=== PATIENT | female | born 1970 | race Caucasian/White ===

== ENCOUNTER 2020-04-11 09:27 | Outpatient (REF) | payer BC, SELFPAY ==
[2020-04-11 11:29] LABS: MANUAL DIFF FLAG NO
[2020-04-11 11:37] LABS: Basophils Absolute Auto 0.1 X10*3/uL (0.0-0.2); Basophils Percent Auto 0.5 % (0-2); Eosinophils Absolute Auto 0.3 X10*3/uL (0.0-0.4); Eosinophils Percent Auto 2.9 % (0-4); Hematocrit 45.8 % (37-47); Hemoglobin 15.6 g/dl (12.0-16.0); Imm Gran Abs Auto 0.03 X10*3/uL (0.00-0.03); Imm Gran Pct Auto 0.3 % (0.0-0.4); Lymphocytes Absolute Auto 2.9 X10*3/uL (1.2-4.9); Lymphocytes Percent Auto 29.4 % (20-40); Mean Corpuscular HGB Conc 34.1 g/dl (31.0-35.0); Mean Corpuscular Hemoglobin 30.9 pg (27.0-33.0); Mean Corpuscular Volume 90.7 fL (80-98); Mean Platelet Volume 11.4 fL (9.4-12.3); Monocytes Absolute Auto 0.5 X10*3/uL (0.1-1.2); Monocytes Percent Auto 4.5 % (2-11); Neutrophils Absolute Auto 6.2 X10*3/uL (2.0-8.3); Neutrophils Percent Auto 62.4 % (45-73); Platelet Count 304 X10*3/uL (160-400); Red Blood Count 5.05 X10*6/uL (4.20-5.50); Red Cell Distribution Width 13.4 % (11.0-16.0)
[2020-04-11 11:55] LABS: Anion Gap 16 (12-20); Blood Urea Nitrogen 10 mg/dL (9-16); Calcium 9.4 mg/dL (8.4-10.2); Carbon Dioxide 24 mmol/L (22-29); Chloride 105 mmol/L (96-108); Estimated Glomerular Filt Rate > 60; Glucose Random 89 mg/dL (60-115); Potassium 4.4 mmol/l (3.3-5.1); Sodium 141 mmol/L (135-145)
[2020-04-11 12:55] LABS: Erythrocyte Sedimentation Rate 14 MM/HR (0-20)
[2020-04-12 18:17] LABS: Immunoglobulin E 3 kU/L (<OR=114)
[2020-04-14 11:56] LABS: Angiotensin Converting Enzyme 45 U/L (9-67)
[2020-04-14 16:32] LABS: IgA 127 mg/dL (47-310); IgG 645 mg/dL (600-1640); IgM 46 mg/dL (50-300)
== END 2020-04-11 09:28 | disposition home or self-care (01) ==
LOC: HO.LAB 09:27
PROVIDERS: PCP Family Medicine; Visit Provider Hospitalist
DX: J32.9 Chronic sinusitis, unspecified (principal); J45.909 Unspecified asthma, uncomplicated; D80.1 Nonfamilial hypogammaglobulinemia; J98.11 Atelectasis; F17.200 Nicotine dependence, unspecified, uncomplicated
CPT/HCPCS: 36415; 80048; 82164; 82784; 82785; 85025; 85652

== ENCOUNTER → 2020-06-07 10:02 | Outpatient (BNVA) | payer BC, SELFPAY | PROVIDERS: PCP Family Medicine; Visit Provider Hospitalist | DX: Z13.89 Encounter for screening for other disorder (principal) ==

== ENCOUNTER → 2020-07-28 10:34 | Outpatient (BNVA) | payer BC, SELFPAY | PROVIDERS: PCP Family Medicine; Visit Provider Hospitalist ==

== ENCOUNTER 2020-09-27 07:03 | Outpatient (REF) | payer BC, SELFPAY ==
--- NOTE | ~2020-09-27 | CT_ITS ---
EXAMINATION: CT CHEST, ABDOMEN AND PELVIS WITH IV CONTRAST CLINICAL INFORMATION: Atelectasis. Colitis and abdominal pain. COMPARISON: None. TECHNIQUE: Axial images through the chest, abdomen and pelvis following oral and 85 mL of Omnipaque 350 intravenous contrast. Sagittal and coronal reconstructions on the technologist workstation were performed. Patient dose: 215+634 mGy-cm. FINDINGS: CHEST: There is a 3 mm left upper lobe nodule axial image 26 series 13. There is a 2 mm calcified left upper lobe nodule, axial image 26 series 13. There is a 6 x 8 mm right lower lobe nodule, axial image 141 series 13. This is heterogeneous in attenuation with low-attenuation areas questionable for fat. This raises the question of a nodule representing a benign pulmonary hamartoma. There is an area of cystic change seen in the right lower lobe measuring 1 cm axial image 116 series 3. There is minimal subsegmental atelectasis seen at both lung bases. No endobronchial or endotracheal lesion is seen. Visualized thyroid gland is normal. There are small mediastinal lymph nodes. No enlarged lymph nodes are seen. There is mild coronary artery calcification. The mediastinum is otherwise normal. There is no pleural effusion or pleural thickening or pneumothorax. No chest wall mass or enlarged axillary lymph nodes are seen. Review of bone windows demonstrates mild degenerative changes of the spine. ABDOMINAL AND PELVIC: The liver is normal in size, shape and attenuation. There is a 5 mm low-attenuation lesion seen in the medial segment of the left lobe of the liver, axial image 18 series 3, probably representing a cyst. No other focal liver lesion is seen. The gallbladder is normal. There is no biliary duct dilatation. The spleen is normal. Pancreas is normal. The adrenal glands are normal. There is a tiny 3 mm low-attenuation lesion in the upper pole the left kidney probably representing a cyst. Kidneys are otherwise unremarkable. The bladder is unremarkable. The uterus appears to have been removed. No pelvic mass is seen. The small and large bowel is unremarkable. The stomach is unremarkable. The appendix is unremarkable. There is a small umbilical hernia containing fat. No ascites or adenopathy is seen. Vascular structures are unremarkable. There are several nonspecific sclerotic lesions seen in the pelvis and spine. The largest measures 1 x 2 cm in the left iliac bone. CT/CT abdomen pelvis w con IMPRESSION: CHEST: Subsegmental atelectasis at the lung bases. Small pulmonary nodules, largest a 6 x 8 mm right lower lobe nodule. This is heterogeneous in attenuation with low-attenuation areas questionable for fat. This raises possible diagnosis of benign hamartoma. Comparison with old outside exams if available is recommended. Otherwise chest CT follow-up in 6-12 months or PET/CT scan should be considered. ABDOMEN AND PELVIS: Probable small liver and left renal cysts. No follow-up indicated. No evidence of colitis. Small umbilical hernia containing fat.
[2020-09-27] MEDS: iohexoL 350 MG/ML 100 ML INFUS..BTL IV (09:30)
== END 2020-09-27 07:04 | disposition home or self-care (01) ==
LOC: HO.CT 07:03
PROVIDERS: Visit Provider Hospitalist
DX: R10.84 Generalized abdominal pain (principal); K52.9 Noninfective gastroenteritis and colitis, unspecified; J98.11 Atelectasis; J91.8 Pleural effusion in other conditions classified elsewhere
CPT/HCPCS: 71250; 74177; Q9967

== ENCOUNTER → 2020-10-27 10:24 | Outpatient (BNVA) | payer BC, SELFPAY | PROVIDERS: PCP Family Medicine; Visit Provider Hospitalist ==

== ENCOUNTER → 2021-03-26 10:21 | Outpatient (BNVA) | payer BC, SELFPAY | PROVIDERS: PCP Family Medicine; Visit Provider Hospitalist ==

== ENCOUNTER 2021-07-06 09:49 | Outpatient (REF) | payer BC, SELFPAY ==
--- NOTE | ~2021-07-06 | XR_ITS ---
EXAMINATION: XR CHEST CLINICAL INFORMATION: Post COVID COMPARISON: CT chest dated 09/27/2020 TECHNIQUE: 2 views of the chest were obtained. FINDINGS: Normal symmetric lung volumes. No parenchymal consolidation. No pleural effusion. No pneumothorax. Cardiomediastinal silhouette and pulmonary vascularity are within normal limits. No acute osseous abnormalities. XR/XR chest 2V IMPRESSION: No acute findings
--- NOTE | 2021-07-06 10:31 | ECG_ITS ---
Test Reason : COPD Blood Pressure : / mmHG Vent. Rate : 071 BPM Atrial Rate : 071 BPM P-R Int : 182 ms QRS Dur : 070 ms QT Int : 418 ms P-R-T Axes : 051 072 055 degrees QTc Int : 454 ms Normal sinus rhythm Normal ECG No previous ECGs available Referred By: Sumeet Clements Electronically Signed By:Keith Elizondo
== END 2021-07-06 09:50 | disposition home or self-care (01) ==
LOC: HO.XRAY 09:49
PROVIDERS: PCP Family Medicine; Visit Provider Hospitalist
DX: R07.9 Chest pain, unspecified (principal); D80.1 Nonfamilial hypogammaglobulinemia; R91.8 Other nonspecific abnormal finding of lung field; J45.40 Moderate persistent asthma, uncomplicated; J98.11 Atelectasis; U09.9 Post COVID-19 condition, unspecified; F17.200 Nicotine dependence, unspecified, uncomplicated
CPT/HCPCS: 71046; 93005

== ENCOUNTER 2021-10-12 15:49 | Outpatient (REF) | payer BC, SELFPAY ==
--- NOTE | ~2021-10-12 | CT_ITS ---
EXAMINATION: CT CHEST LOW-DOSE SCREENING WITHOUT CONTRAST HISTORY: Asymptomatic patient meeting criteria for lung screening. PATIENT PACK-YEAR HISTORY: 1 pack per day x 35 years. Current Smoker: Yes. If former smoker, years since quitting: Not applicable. COMPARISON: CT chest dated from 09/27/2020. TECHNIQUE: Multidetector volumetric non-contrast CT imaging of the chest was obtained using low dose screening CT technique. Axial thin section reformations in soft tissue and lung windows were obtained. Sagittal and coronal reformations were obtained. Axial MIP images were also created and reviewed. DLP: 44.9 mGy-cm FINDINGS: LUNGS: A 0.8 x 0.8 cm pulmonary nodule in the medial right lung base (5:351) is unchanged. As stated before, this nodule possible demonstrates tiny fat lobules. A 0.4 cm pulmonary nodule in the lateral right lung base (5:351) is unchanged. A 0.3 cm left apical pulmonary nodule (5:61) is unchanged. A tiny calcified granuloma medially in the left apex (5:67) is again noted. No new or enlarging pulmonary nodules. No focal airspace opacities or ground-glass disease. The central airways are patent. There are mild plate-like opacities in the lung bases favored to represent subsegmental atelectasis or scarring. A few small focal parenchymal lucencies, for example right upper lobe image 158, and right lower lobe images 286 and 291 of series 5 are unchanged. MEDIASTINUM: Normal heart size. No pericardial effusion. No lymphadenopathy by size criteria. The thyroid gland is within normal limits to the extent seen. PLEURA: No pleural effusion or pneumothorax. AXILLA: No chest wall mass or axillary lymphadenopathy. UPPER ABDOMEN: A too small to characterize hypodensity in the medial left lobe (3:51) is unchanged. SPINAL COMPRESSION: Absent. CT/CT lung screening IMPRESSION: Stable pulmonary nodules. The largest pulmonary nodule measures 0.8 cm in the medial right lung base possibly demonstrating tiny fat lobules, which favors to represent a benign etiology such as hamartoma. Other pulmonary nodules measure less than 4 mm in size. LUNG-RADS CATEGORY ASSESSMENT: Probably benign. INCIDENTAL FINDINGS (S CATEGORY): Finding: Coronary artery calcifications. Significance category: Variable clinical significance. RECOMMENDATION: Low dose lung CT. overall in 1 year. Visual estimate of coronary calcified plaque burden: Mild. However, this exam cannot replace a dedicated cardiac CT calcium score for accurate assessment.
== END 2021-10-12 15:50 | disposition home or self-care (01) ==
LOC: HO.CT 15:49
PROVIDERS: PCP Family Medicine; Visit Provider Physician Assistant Medical
DX: Z12.2 Encounter for screening for malignant neoplasm of respiratory organs (principal); F17.210 Nicotine dependence, cigarettes, uncomplicated
CPT/HCPCS: 71271; G0296

== ENCOUNTER → 2021-10-15 09:37 | Outpatient (BNVA) | payer BC, SELFPAY | PROVIDERS: PCP Family Medicine; Visit Provider Hospitalist | DX: R07.9 Chest pain, unspecified (principal); D80.1 Nonfamilial hypogammaglobulinemia; R91.8 Other nonspecific abnormal finding of lung field; U09.9 Post COVID-19 condition, unspecified; C43.9 Malignant melanoma of skin, unspecified ==

== ENCOUNTER 2023-04-25 16:27 | Outpatient (REF) | payer BC, SELFPAY ==
--- NOTE | ~2023-04-25 | CT_ITS ---
EXAMINATION: CT CHEST SCREENING CLINICAL INFORMATION: Nicotine dependence. One pack per day x 35 years. COMPARISON: CT lung screening October 12, 2021. TECHNIQUE: Multidetector volumetric CT imaging of the chest is performed without contrast using low dose technique. Additional 2-D coronal and sagittal reformatted images and axial 3-D maximum intensity projection (MIP) images are generated on the CT workstation. This CT examination was performed using dose optimization techniques as appropriate, variously including the following: *Automated exposure control. *Adjustment of mA and/or kV according to patient size (this includes techniques or standardized protocols for targeted exams where dose is matched to indication/reason for exam; i.e. extremities or head). *Use of iterative reconstruction technique. DLP: 44 mGy-cm FINDINGS: LUNGS: A 9 x 9 mm pulmonary nodule in the medial right lung base (5:424 compare prior 5:351) is unchanged by my measurements on both the new and old study. A 4 mm pulmonary nodule in the lateral right lung base (5:443 compare prior 5:351) is unchanged. A 4 mm left apical pulmonary nodule previously measured 3 mm (5:99 compare prior 5:61). A tiny calcified granuloma medially in the left apex (5:93 compare prior 5:67) is again noted. There is a new 6 x 4 x 5 mm right middle lobe nodule which abuts the minor fissure and tents slightly. No other new or enlarging pulmonary nodules. No focal consolidation or ground-glass disease. The central airways are patent. Basilar scarring is again seen. MEDIASTINUM: The mediastinum is normal. CORONARY ARTERY CALCIFICATION: Mild. PLEURA: There is no pleural effusion. No pleural mass or thickening. AXILLA: No lymphadenopathy. UPPER ABDOMEN: Small water density cyst noted in the right lobe of the liver near the falciform ligament, unchanged. OSSEOUS STRUCTURES: Unremarkable. CT/CT lung screening IMPRESSION: 1. A new 6 x 4 x 5 mm right middle lobe nodule which abuts the minor fissure and tents slightly. 2. Other pulmonary nodules are stable. 3. Other incidental findings as described above. ASSESSMENT: Lung-RADS category 4A: Suspicious. RECOMMENDATION: Short interval 3 month follow up low dose CT chest.
== END 2023-04-25 16:28 | disposition home or self-care (01) ==
LOC: HO.CT 16:27
PROVIDERS: Visit Provider Physician Assistant Medical
DX: Z12.2 Encounter for screening for malignant neoplasm of respiratory organs (principal); F17.210 Nicotine dependence, cigarettes, uncomplicated
CPT/HCPCS: 71271

== ENCOUNTER 2023-07-18 10:07 | Outpatient (AMB) | payer BC, SELFPAY ==
--- NOTE | 2023-07-18 10:09 | A.OFFVIS_ITS ---
Intake Vital Signs 07/18/23 10:12 Height 5 ft 7.5 in Weight 142 lb BMI 21.9 BP 128/70 Blood Pressure Location Rt brachial Position Sitting Pulse 63 Pulse Source Pulse Oximeter Pulse Oximetry (%) 99 Oxygen Delivery Method Room Air Intake Visit Reasons: asthma Store Coordinator Required: No Allergies amoxicillin Allergy (Severe, Verified 07/18/23 10:15) Rash and Hives Latex Allergy (Severe, Uncoded 07/18/23 10:15) Rash and Hives HPI HPI Comments History of Present Illness Details The patient is a 53-year-old woman active smoker, history of asthma who has a history of pulmonary nodules. Apparently back in for where she started developing worsening respiratory symptoms and cough. She was seen by urgent care and was provided with antibiotic. Subsequent after that her symptoms worsen with increasing wheezing and she return to be evaluated. She was given prednisone and 2nd course of antibiotics. Her symptoms were partially improved but she was still coughing and short of breath. She was tested for COVID-19 which was negative. 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 She also had a CT scan of the chest demonstrating stable pulmonary nodules although she has increased haziness at the bases suggesting the possibility of atelectasis versus early interstitial lung disease. Patient also has some evidence of emphysema the appears to be progressive in nature. Evidence of bronchitis also noted. Due to the persistent symptoms she did go back to her primary care doctor who ordered another Z-Jin. We did talk about her immunodeficiency issues. We talked about the options of prophylactic antibiotics versus IgG infusions. At this point patient opted to tried prophylactic antibiotics and see if there is any improvement in her immune system the coming months. She is going to try to quit smoking in order to improve her immune system and also will avoid steroids smart as possible. At this point because they are lower and she still having symptoms I will refer her to immunology so she can go a more in-depth evaluation of why she is immuno deficient. In the meantime she is to continue the azithromycin Friday and Friday. In regards of her interstitial changes in her bases and atelectasis along with pulmonary nodules will request a repeat CT scan with supine and prone cuts in order to try to address the question of interstitial lung disease. We did follow-up with her off phenotype which is normal, MM. 02/04/2020 the patient is here for pulmonary follow-up visit. She still has multiple complaints. She did have the sleep study which demonstrated an AHI of 0.6 I reassured that she does not have sleep apnea. She states that it was a very limited studies and she was unable to sleep that night. Explained to her that is still a very good result in for now we can this regard. She is feeling better and she is sleeping better from the standpoint. Her breathing is also better using the Symbicort. However, she does complaint of significant coughing productive sputum moderate severity. We were able to give her hypertonic saline neb in the office and send a sputum culture. We did discuss the possibility of bronchoscopy if is still not improved. In the meantime her IgG levels are still low and actually lower than before. She will follow-up with immunology regards of the results and also considering therapy with IVIG. Is not on reasonable for her to try at least for 6 months to see if he sees any improvement. 04/11/2020 the patient is here for pulmonary follow-up visit. Again she has multiple complaints. She still having significant sinus discomfort and sinus congestion along with cough. She had been seen by immunology. She was placed back on azithromycin 3 times a week, but, the patient stopped it because her colitis got worse. In the meantime she is continue with her current symptoms. She also complains of body aches and headaches. She also complains of difficulty sleeping and daytime drowsiness. We did talk about sleep aid but the patient is not interested at this time. She has been taking benzodiazepines. Again we spoke about the minute deficiency. She did have a pneumococcal vaccine and she recently had a titers. Based on those results the patient will be evaluated for potential IVIG therapy. Will be reasonable to try for 6 months and see if the patient has any significant benefit. 10/27/2020 the patient is here for pulmonary follow-up visit. Overall the patient still recovering after receiving the COVID-19 vaccination. She started developing significant sinus discomfort. Significant congestion. Moderate severity. She did take azithromycin that she had leftover but did not really help much. At this point the patient is immunocompromised, therefore, will start a course of Augmentin to see if we can improve her symptoms. 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 I do think that she should based on her recurrent infections. The other issue is the fact that she is still smoking. We did talk about the risks of continued to get worsening respiratory symptoms and also the risk of lowering her immunity of the airways and resulting increasing infections. The patient will hopefully start cutting down. We did review her CT scan of the chest that she had recently in September 2020 demonstrating stable intermediate size right lower lobe nodular density measuring to 8 mm in size. 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 Has not changed when compared to previous CT scans. At this point this appears to be a benign finding. Patient now at the she 50 would be a good candidate for the lung cancer screening program to continue monitoring her findings and also with her increase of lung cancer. 03/26/2021 the patient is here for a pulmonary follow-up visit. Overall the patient has been complaining of increasing constitutional symptoms. She was recently vaccinated with the flu shot about a week ago and then a few days ago she did get both vaccines for hepatitis-B and also repeat mmr. Ever since then she has been developing significant symptoms. She started developing chest discomfort I also noticed a bruise on her chest. She also started complaining left upper quadrant discomfort. She has been taking extra-strength Tylenol. I did recommend that she rest and hopefully her symptoms do improve if they are just due to vaccine reaction. However her symptoms do not improve or she gets worse then I did provide her with a chest x-ray and blood work to have done. She is also concerned about having booster since she has had a bad reaction to the 2nd maternal shot. In view of her we can immune system she should. However due to her reaction would be reasonable to check her COVID-19 spike protein titers to see if she would need a booster. Unfortunately, she continues smoking. She does have the nicotine patch and also has the Nicotrol inhaler. She needs to come up with a quit date and start her tobacco cessation. 07/06/2021 the patient is here for pulmonary follow-up visit. 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 the symptoms are affecting her quality of life. We did talk about different options including stimulant therapy that we can consider using such as Nuvigil or Provigil for persistent daytime drowsiness. Meantime the patient needs to make sure that she is sleeping adequately with good sleep hygiene. in the meantime she continues use her respiratory therapy with partial resolution of her symptoms. Unfortunately she is still smoking. She is trying to cut down. In addition to that the patient does complaint of this new onset left- sided chest discomfort. She has had therefore about a day or so. Seems to wax and wane. At this point the symptoms are not present. Will have her get an x- ray and an EKG just to make sure. If the symptoms worsen of the recur she will needs further evaluation management. 10/15/2021 the patient is here for a pulmonary follow-up visit. she continues to have dyspnea on exertion. Unfortunate she continues to smoke cigarettes. She is very stressed lately so is not a good time to quit. She did have a reasonable response to Wellbutrin in the past and also using the nicotine gum. However, she cannot chew gum anymore. She had a partial response to the Nicotrol inhaler. I will send her the Wellbutrin again to the pharmacy in order for her to start. We did review her pulmonary function studies. She does have a significant obstructive condition. In addition to that she did undergo a CT scan as part of the lung cancer screening program. She does have an 8 mm pulmonary nodule that is not changing. She will continue to follow the lung cancer screening guidelines. The patient was concerned because she also had calcifications of the coronary arteries. Explained to her that the smoking is also affecting her heart in her vasculature. She is going to try more than ever to quit. We did talk about potential considering hypnosis other right now on initially she cannot afford to do anything outside of her means. 07/18/2023 the patient is here for pulmonary follow-up visit. Patient overall has been much better. She is exercising regularly. She is also working on weight loss. Her appetite however has been decreased. She continues use the Nicotrol inhaler with good effect. She did undergo CT scan of the chest to the lung cancer screening program. It demonstrated that she has 2 new nodules on the right hemithorax. We personally reviewed the CT scans together. She is scheduled to have another scan in the coming weeks. We did talk that if the scan demonstrates any worsening of the nodules then will have to be more invasive figure out what the nodules are potentially considering resection. 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 Pulmonary nodules Tobacco dependence Sinusitis Atelectasis Asthma Hypogammaglobulinemia Surgical History (Updated 10/12/21 @ 11:35 by Christelle Tovar PA-C) History of total hysterectomy History of Social History (Updated 10/12/21 @ 15:43 by Christelle Tovar PA-C) Patient Tobacco Use Status: Current everyday Tobacco user Tobacco use type: Cigarette Cigarette Packs Per Day: 1 Years Smoked: onset 14, 1ppd x 37yrs, 37pyh Review of Systems Const Denies body aches, Denies daytime sleepiness, Reports difficulty sleeping, Denies fatigue, Denies fever(s), Denies night sweats, Reports poor appetite and Reports weight loss ENT Denies change in voice, Denies lip swelling, Denies mouth pain, Reports nasal congestion, Reports nasal discharge, Denies sinus pain and Denies tongue swelling Card Denies chest pain Resp Reports cough GI Reports no additional complaints Musc Denies no additional complaints Neuro Denies Neuro-related abnormal movements Psych Reports as per HPI Endo Denies fatigue Gerald/Lymph Denies easy bleeding, Reports easy bruising and Denies lymphadenopathy Aller/Immun Denies lip swelling and Denies tongue swelling Physical Exam Vital Signs: Last Vital Signs Pulse 63 07/18/23 10:12 BP 128/70 07/18/23 10:12 Pulse Ox 99 07/18/23 10:12 Oxygen Delivery Method Room Air 07/18/23 10:12 BMI result Body Mass Index 21.9 Const General: alert Neck Neck: Yes normal visual inspection, Yes full ROM and Yes no lymphadenopathy Chest Chest palpation & inspection: normal inspection of the chest Resp Effort & Inspection: normal respiratory effort Auscultation: diminished lung sounds Cardio Rate: regular rate Rhythm: regular rhythm Heart sounds: S1 normal heart sound present and S2 normal heart sound present GI Palpation (GI): Soft to palpation, Tenderness to palpation present (GI) in the LUQ, no guarding, not rigid and hepatosplenomegaly present Auscultation: normal bowel sounds Skin General skin exam: no rashes or lesions noted Extrem General: Yes no clubbing, cyanosis or edema Results Reviewed Results Reviewed: [address] [address] [address] Scan Report Signed Patient: Moira Rosen MR#: [id number] : 1970 Acct:[id number] Age/Sex: 53 / F ADM Date: 04/25/23 Loc: HO.CT Attending Dr: Christelle Tovar PA-C Ordering Physician: Christelle Tovar PA-C Date of Service: 04/25/23 Procedure(s): CT lung screening Accession Number(s): [id number] cc: Christelle Tovar PA-C~ EXAMINATION: CT CHEST SCREENING CLINICAL INFORMATION: Nicotine dependence. One pack per day x 35 years. COMPARISON: CT lung screening October 12, 2021. TECHNIQUE: Multidetector volumetric CT imaging of the chest is performed without contrast using low dose technique. Additional 2-D coronal and sagittal reformatted images and axial 3-D maximum intensity projection (MIP) images are generated on the CT workstation. This CT examination was performed using dose optimization techniques as appropriate, variously including the following: *Automated exposure control. *Adjustment of mA and/or kV according to patient size (this includes techniques or standardized protocols for targeted exams where dose is matched to indication/reason for exam; i.e. extremities or head). *Use of iterative reconstruction technique. DLP: 44 mGy-cm FINDINGS: LUNGS: A 9 x 9 mm pulmonary nodule in the medial right lung base (5:424 compare prior 5:351) is unchanged by my measurements on both the new and old study. A 4 mm pulmonary nodule in the lateral right lung base (5:443 compare prior 5:351) is unchanged. A 4 mm left apical pulmonary nodule previously measured 3 mm (5:99 compare prior 5:61). A tiny calcified granuloma medially in the left apex (5:93 compare prior 5:67) is again noted. There is a new 6 x 4 x 5 mm right middle lobe nodule which abuts the minor fissure and tents slightly. No other new or enlarging pulmonary nodules. No focal consolidation or ground-glass disease. The central airways are patent. Basilar scarring is again seen. MEDIASTINUM: The mediastinum is normal. CORONARY ARTERY CALCIFICATION: Mild. PLEURA: There is no pleural effusion. No pleural mass or thickening. AXILLA: No lymphadenopathy. UPPER ABDOMEN: Small water density cyst noted in the right lobe of the liver near the falciform ligament, unchanged. OSSEOUS STRUCTURES: Unremarkable. CT/CT lung screening IMPRESSION: 1. A new 6 x 4 x 5 mm right middle lobe nodule which abuts the minor fissure and tents slightly. 2. Other pulmonary nodules are stable. 3. Other incidental findings as described above. ASSESSMENT: Lung-RADS category 4A: Suspicious. RECOMMENDATION: Short interval 3 month follow up low dose CT chest. Dictated By: Americo Lux MD Signed By: <Electronically signed by Americo Lux MD in OV> 05/01/23 2210 DD/ 1647 TD/TT: Retail Helper: CHALO Assessment & Plan Assessment & Plan (1) Pulmonary nodules: Code(s): R91.8 - Other nonspecific abnormal finding of lung field (2) Hypogammaglobulinemia: Code(s): D80.1 - Nonfamilial hypogammaglobulinemia (3) Asthma: Code(s): J45.909 - Unspecified asthma, uncomplicated Qualifiers: Asthma complication type: uncomplicated Asthma persistence: persistent Asthma severity: moderate Qualified Code(s): J45.40 - Moderate persistent asthma, uncomplicated (4) Tobacco dependence: Comment: will retry Wellbutrin Code(s): F17.200 - Nicotine dependence, unspecified, uncomplicated (5) Atelectasis: Code(s): J98.11 - Atelectasis Plan Continue Symbicort GENNY as needed Wellbutrin continue nicotrol inhaler as needed LDCT program, now with nodules, RADS 4A Bloodwork F/U 6 months Orders: Orders Immunoglobulin E 07/18/23 D80.1 - Nonfamilial hypogammaglobulinemia Erythrocyte Sedimentation Rate 07/18/23 D80.1 - Nonfamilial hypogammaglobulinemia Immunoglobulin G Subclasses 07/18/23 D80.1 - Nonfamilial hypogammaglobulinemia Immunoglobulins,IgG IgA IgM 07/18/23 D80.1 - Nonfamilial hypogammaglobulinemia Complete Blood Count Auto Diff 07/18/23 D80.1 - Nonfamilial hypogammaglobulinemia Medications: Refilled nicotine (Nicotrol) 1 inh inhalation Q2-4H 30 days PRN 168 ea 6RF nicotine cravings Quality Reporting (2019) Adult ([facility] 138/2/) Smoking risk assessment performed?: Yes Patient Tobacco Use Status: Current everyday Tobacco user Coding Level of Care Code Est Pt Level 4 (28584) Diagnoses Pulmonary nodules R91.8 Hypogammaglobulinemia D80.1 Moderate persistent asthma without complication J45.40 Asthma complication type: uncomplicated Asthma persistence: persistent Asthma severity: moderate Tobacco dependence F17.200 Atelectasis J98.11 Time Spent (min) 17
[2023-07-18 10:12] VITALS: BP 128/70; PULSE 63; O2SAT 99; BMI 21.9
== END 2023-07-18 10:42 | disposition home or self-care (01) ==
PROVIDERS: PCP Family Medicine; Visit Provider Hospitalist
DX: R91.8 Other nonspecific abnormal finding of lung field (principal); D80.1 Nonfamilial hypogammaglobulinemia; J45.40 Moderate persistent asthma, uncomplicated; F17.200 Nicotine dependence, unspecified, uncomplicated; J98.11 Atelectasis
CPT/HCPCS: 99214

== ENCOUNTER → 2023-07-18 10:07 | Outpatient (BNVA) | payer BC, SELFPAY | PROVIDERS: PCP Family Medicine; Visit Provider Hospitalist ==

== ENCOUNTER 2023-07-29 07:14 | Outpatient (REF) | payer BC, SELFPAY ==
--- NOTE | ~2023-07-29 | CT_ITS ---
EXAMINATION: CT CHEST SCREENING CLINICAL INFORMATION: Personal history of nicotine dependence. COMPARISON: CT chest 04/25/2023. A new 6 x 4 x 5 mm right middle lobe nodule which abuts the minor fissure and tents it slightly. TECHNIQUE: Multidetector volumetric CT imaging of the chest is performed without contrast using low dose technique. Additional 2D coronal and sagittal reformatted images and axial 3D maximum intensity projection (MIP) images are generated on the CT workstation. This CT examination was performed using dose optimization techniques as appropriate, variously including the following: *Automated exposure control *Adjustment of mA and/or kV according to patient size (this includes techniques or standardized protocols for targeted exams where dose is matched to indication/reason for exam; i.e. extremities or head) *Use of iterative reconstruction technique DLP: 41 mGy-cm FINDINGS: LUNGS: The previously seen new right middle lobe nodule that had been tenting the minor fissure is seen and is significantly smaller than previously noted measuring 3 x 4 x 3 mm in size (previously 6 x 4 x 5 mm). Previously seen 5 mm right lower lobe nodule (previous 5:304) which is now barely perceptible (5:267). A 4 mm lingular nodule (previous 5:414) has also nearly resolved measuring only at most 2 mm (5:364). A 3 mm nodule at the left apex is unchanged (5:58 compare prior 5:99). The largest nodule in the right azygos esophageal recess measures 9 mm in size and is unchanged (5:381 compare prior 5:424). MEDIASTINUM: The mediastinum is normal. CORONARY ARTERY CALCIFICATION: Mild. PLEURA: There is no pleural effusion. No pleural mass or thickening. AXILLA: No lymphadenopathy. UPPER ABDOMEN: A benign cyst is again seen in the right lobe of the liver. OSSEOUS STRUCTURES: Unremarkable. CT/CT lung screen follow up IMPRESSION: Previously seen new 6 mm nodule has decreased in size considerably. A nodule in the right lower lobe and lingula have significantly decreased in size or resolved. One 3 mm nodule at the left apex is unchanged as is the largest 9 mm nodule in the azygos esophageal recess. No evidence at this time to suggest malignancy. ASSESSMENT: Lung-RADS category 2: Benign RECOMMENDATION: Routine annual low-dose CT screening in 12 months.
== END 2023-07-29 07:15 | disposition home or self-care (01) ==
LOC: HO.CT 07:14
PROVIDERS: PCP Family Medicine; Visit Provider Nurse Practitioner Family
DX: R91.8 Other nonspecific abnormal finding of lung field (principal); C43.9 Malignant melanoma of skin, unspecified; Z87.891 Personal history of nicotine dependence
CPT/HCPCS: 71250

== ENCOUNTER 2024-01-13 15:41 | Outpatient (AMB) | payer BC, SELFPAY ==
--- NOTE | 2024-01-13 15:44 | MHC.OFFVIS ---
Vital Signs 01/13/24 15:45 Height 5 ft 7.5 in Weight 145 lb BMI 22.4 Pulse 60 Pulse Source Pulse Oximeter Pulse Oximetry (%) 99 Oxygen Delivery Method Room Air Intake Visit Reasons: asthma Programmer Analyst Consultant Required: No Allergies amoxicillin Allergy (Severe, Verified 01/13/24 15:46) Rash and Hives Latex Allergy (Severe, Uncoded 01/13/24 15:46) Rash and Hives HPI Comments Details: The patient is a 53-year-old woman active smoker, history of asthma who has a history of pulmonary nodules. Apparently back in for where she started developing worsening respiratory symptoms and cough. She was seen by urgent care and was provided with antibiotic. Subsequent after that her symptoms worsen with increasing wheezing and she return to be evaluated. She was given prednisone and 2nd course of antibiotics. Her symptoms were partially improved but she was still coughing and short of breath. She was tested for COVID-19 which was negative. 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 She also had a CT scan of the chest demonstrating stable pulmonary nodules although she has increased haziness at the bases suggesting the possibility of atelectasis versus early interstitial lung disease. Patient also has some evidence of emphysema the appears to be progressive in nature. Evidence of bronchitis also noted. Due to the persistent symptoms she did go back to her primary care doctor who ordered another Z-Jin. We did talk about her immunodeficiency issues. We talked about the options of prophylactic antibiotics versus IgG infusions. At this point patient opted to tried prophylactic antibiotics and see if there is any improvement in her immune system the coming months. She is going to try to quit smoking in order to improve her immune system and also will avoid steroids smart as possible. At this point because they are lower and she still having symptoms I will refer her to immunology so she can go a more in-depth evaluation of why she is immuno deficient. In the meantime she is to continue the azithromycin Friday and Friday. In regards of her interstitial changes in her bases and atelectasis along with pulmonary nodules will request a repeat CT scan with supine and prone cuts in order to try to address the question of interstitial lung disease. We did follow-up with her off 1 phenotype which is normal, MM. 02/04/2020 the patient is here for pulmonary follow-up visit. She still has multiple complaints. She did have the sleep study which demonstrated an AHI of 0.6 I reassured that she does not have sleep apnea. She states that it was a very limited studies and she was unable to sleep that night. Explained to her that is still a very good result in for now we can this regard. She is feeling better and she is sleeping better from the standpoint. Her breathing is also better using the Symbicort. However, she does complaint of significant coughing productive sputum moderate severity. We were able to give her hypertonic saline neb in the office and send a sputum culture. We did discuss the possibility of bronchoscopy if is still not improved. In the meantime her IgG levels are still low and actually lower than before. She will follow-up with immunology regards of the results and also considering therapy with IVIG. Is not on reasonable for her to try at least for 6 months to see if he sees any improvement. 04/11/2020 the patient is here for pulmonary follow-up visit. Again she has multiple complaints. She still having significant sinus discomfort and sinus congestion along with cough. She had been seen by immunology. She was placed back on azithromycin 3 times a week, but, the patient stopped it because her colitis got worse. In the meantime she is continue with her current symptoms. She also complains of body aches and headaches. She also complains of difficulty sleeping and daytime drowsiness. We did talk about sleep aid but the patient is not interested at this time. She has been taking benzodiazepines. Again we spoke about the minute deficiency. She did have a pneumococcal vaccine and she recently had a titers. Based on those results the patient will be evaluated for potential IVIG therapy. Will be reasonable to try for 6 months and see if the patient has any significant benefit. 10/27/2020 the patient is here for pulmonary follow-up visit. Overall the patient still recovering after receiving the COVID-19 vaccination. She started developing significant sinus discomfort. Significant congestion. Moderate severity. She did take azithromycin that she had leftover but did not really help much. At this point the patient is immunocompromised, therefore, will start a course of Augmentin to see if we can improve her symptoms. The patient will follow-up with her cutter hand regarding the possibility of starting IgG therapy. I do think that she should based on her recurrent infections. The other issue is the fact that she is still smoking. We did talk about the risks of continued to get worsening respiratory symptoms and also the risk of lowering her immunity of the airways and resulting increasing infections. The patient will hopefully start cutting down. We did review her CT scan of the chest that she had recently in September 2020 demonstrating stable intermediate size right lower lobe nodular density measuring to 8 mm in size. 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 Has not changed when compared to previous CT scans. At this point this appears to be a benign finding. Patient now at the she 50 would be a good candidate for the lung cancer screening program to continue monitoring her findings and also with her increase of lung cancer. 03/26/2021 the patient is here for a pulmonary follow-up visit. Overall the patient has been complaining of increasing constitutional symptoms. She was recently vaccinated with the flu shot about a week ago and then a few days ago she did get both vaccines for hepatitis-B and also repeat mmr. Ever since then she has been developing significant symptoms. She started developing chest discomfort I also noticed a bruise on her chest. She also started complaining left upper quadrant discomfort. She has been taking extra-strength Tylenol. I did recommend that she rest and hopefully her symptoms do improve if they are just due to vaccine reaction. However her symptoms do not improve or she gets worse then I did provide her with a chest x-ray and blood work to have done. She is also concerned about having booster since she has had a bad reaction to the 2nd maternal shot. In view of her we can immune system she should. However due to her reaction would be reasonable to check her COVID-19 spike protein titers to see if she would need a booster. Unfortunately, she continues smoking. She does have the nicotine patch and also has the Nicotrol inhaler. She needs to come up with a quit date and start her tobacco cessation. 07/06/2021 the patient is here for pulmonary follow-up visit. 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 the symptoms are affecting her quality of life. We did talk about different options including stimulant therapy that we can consider using such as Nuvigil or Provigil for persistent daytime drowsiness. Meantime the patient needs to make sure that she is sleeping adequately with good sleep hygiene. in the meantime she continues use her respiratory therapy with partial resolution of her symptoms. Unfortunately she is still smoking. She is trying to cut down. In addition to that the patient does complaint of this new onset left-sided chest discomfort. She has had therefore about a day or so. Seems to wax and wane. At this point the symptoms are not present. Will have her get an x-ray and an EKG just to make sure. If the symptoms worsen of the recur she will needs further evaluation management. 10/15/2021 the patient is here for a pulmonary follow-up visit. she continues to have dyspnea on exertion. Unfortunate she continues to smoke cigarettes. She is very stressed lately so is not a good time to quit. She did have a reasonable response to Wellbutrin in the past and also using the nicotine gum. However, she cannot chew gum anymore. She had a partial response to the Nicotrol inhaler. I will send her the Wellbutrin again to the pharmacy in order for her to start. We did review her pulmonary function studies. She does have a significant obstructive condition. In addition to that she did undergo a CT scan as part of the lung cancer screening program. She does have an 8 mm pulmonary nodule that is not changing. She will continue to follow the lung cancer screening guidelines. The patient was concerned because she also had calcifications of the coronary arteries. Explained to her that the smoking is also affecting her heart in her vasculature. She is going to try more than ever to quit. We did talk about potential considering hypnosis other right now on initially she cannot afford to do anything outside of her means. 07/18/2023 the patient is here for pulmonary follow-up visit. Patient overall has been much better. She is exercising regularly. She is also working on weight loss. Her appetite however has been decreased. She continues use the Nicotrol inhaler with good effect. She did undergo CT scan of the chest to the lung cancer screening program. It demonstrated that she has 2 new nodules on the right hemithorax. We personally reviewed the CT scans together. She is scheduled to have another scan in the coming weeks. We did talk that if the scan demonstrates any worsening of the nodules then will have to be more invasive figure out what the nodules are potentially considering resection. 01/13/2024 the patient is here for a pulmonary follow-up visit. Overall she is doing okay from a respiratory status. She does have a rescue inhaler although she does not use it often. She unfortunately continues to smoke cigarettes. She did well with the Nicotrol inhaler although does not seem to be available any longer. She is willing to try the Nicotrol nasal spray. In the meantime the patient is being evaluated for melanoma. She had a lesion on her left breast. She will be seeing a surgeon soon believe a plastic surgeon to further evaluate the area. In addition to that she has been concerned because she has had hoarseness now for several months. It may be related to his smoking. May have also some degree of postnasal drip and reflux. Still she is concerned for the possibility of head and neck cancer because of her high risk of be due to her smoking. I will refer her to ENT in order for her to undergo a laryngoscopy and make sure that there isn't any lesions in her oropharynx. In the meantime she will be following up with her primary care doctor was going to be ordering a CT scan of the neck for her. The patient is already participating in the lung cancer screening program. Her last CT scan was reassuring which was a rods to that had been downgraded from rods 4. her next CT scan will be in the spring. the patient follow-up in 6 months. If he has any issues prior to that she will call for an earlier assessment. She is going to continue working on smoking cessation in the meantime. 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 Pulmonary nodules Tobacco dependence Sinusitis Atelectasis Asthma Hypogammaglobulinemia Surgical History (Updated 10/12/21 @ 11:35 by Christelle Tovar PA-C) History of total hysterectomy History of Social History (Updated 10/12/21 @ 15:43 by Christelle Tovar PA-C) Patient Tobacco Use Status: Current everyday Tobacco user Tobacco use type: Cigarette Cigarette Packs Per Day: 1 Years Smoked: onset 14, 1ppd x 37yrs, 37pyh Review of Systems Const Denies body aches, Denies daytime sleepiness, Reports difficulty sleeping, Denies fatigue, Denies fever(s), Denies night sweats and Reports weight loss ENT Reports change in voice, Reports hoarseness, Denies lip swelling, Denies mouth pain, Reports nasal congestion, Reports nasal discharge, Denies sinus pain and Denies tongue swelling Card Denies chest pain Resp Reports cough GI Reports no additional complaints Musc Denies no additional complaints Skin/Breast Reports as per HPI Neuro Denies Neuro-related abnormal movements Psych Reports as per HPI Endo Denies fatigue Gerald/Lymph Denies easy bleeding, Reports easy bruising and Denies lymphadenopathy Aller/Immun Denies lip swelling and Denies tongue swelling Physical Exam Vital Signs: Last Vital Signs Pulse 60 01/13/24 15:45 Pulse Ox 99 01/13/24 15:45 Oxygen Delivery Method Room Air 01/13/24 15:45 BMI result Body Mass Index 22.4 Const General: alert Neck Neck: Yes normal visual inspection, Yes full ROM and Yes no lymphadenopathy Chest Chest palpation & inspection: normal inspection of the chest Resp Effort & Inspection: normal respiratory effort Auscultation: clear to auscultation bilaterally Cardio Rate: regular rate Rhythm: regular rhythm Heart sounds: S1 normal heart sound present and S2 normal heart sound present GI Palpation (GI): Soft to palpation, Tenderness to palpation present (GI) in the LUQ, no guarding, not rigid and hepatosplenomegaly present Auscultation: normal bowel sounds Skin General skin exam: no rashes or lesions noted Extrem General: Yes no clubbing, cyanosis or edema Quality Reporting (2019) Adult ([facility] ) Smoking risk assessment performed?: Yes Patient Tobacco Use Status: Current everyday Tobacco user Results Reviewed Results Reviewed: [address] [address] [address] Scan Report Signed Patient: Moira Rosen MR#: [id number] : 1970 Acct:[id number] Age/Sex: 53 / F ADM Date: 07/29/23 Loc: HO.CT Attending Dr: Linda Zhou NP Ordering Physician: Linda Zhou NP Date of Service: 07/29/23 Procedure(s): CT lung screen follow up Accession Number(s): [id number] cc: Jeffrey Bowen MD; Linda Zhou NP~ EXAMINATION: CT CHEST SCREENING CLINICAL INFORMATION: Personal history of nicotine dependence. COMPARISON: CT chest 04/25/2023. A new 6 x 4 x 5 mm right middle lobe nodule which abuts the minor fissure and tents it slightly. TECHNIQUE: Multidetector volumetric CT imaging of the chest is performed without contrast using low dose technique. Additional 2D coronal and sagittal reformatted images and axial 3D maximum intensity projection (MIP) images are generated on the CT workstation. This CT examination was performed using dose optimization techniques as appropriate, variously including the following: *Automated exposure control *Adjustment of mA and/or kV according to patient size (this includes techniques or standardized protocols for targeted exams where dose is matched to indication/reason for exam; i.e. extremities or head) *Use of iterative reconstruction technique DLP: 41 mGy-cm FINDINGS: LUNGS: The previously seen new right middle lobe nodule that had been tenting the minor fissure is seen and is significantly smaller than previously noted measuring 3 x 4 x 3 mm in size (previously 6 x 4 x 5 mm). Previously seen 5 mm right lower lobe nodule (previous 5:304) which is now barely perceptible (5:267). A 4 mm lingular nodule (previous 5:414) has also nearly resolved measuring only at most 2 mm (5:364). A 3 mm nodule at the left apex is unchanged (5:58 compare prior 5:99). The largest nodule in the right azygos esophageal recess measures 9 mm in size and is unchanged (5:381 compare prior 5:424). MEDIASTINUM: The mediastinum is normal. CORONARY ARTERY CALCIFICATION: Mild. PLEURA: There is no pleural effusion. No pleural mass or thickening. AXILLA: No lymphadenopathy. UPPER ABDOMEN: A benign cyst is again seen in the right lobe of the liver. OSSEOUS STRUCTURES: Unremarkable. CT/CT lung screen follow up IMPRESSION: Previously seen new 6 mm nodule has decreased in size considerably. A nodule in the right lower lobe and lingula have significantly decreased in size or resolved. One 3 mm nodule at the left apex is unchanged as is the largest 9 mm nodule in the azygos esophageal recess. No evidence at this time to suggest malignancy. ASSESSMENT: Lung-RADS category 2: Benign RECOMMENDATION: Routine annual low-dose CT screening in 12 months. Dictated By: Americo Lux MD Signed By: <Electronically signed by Americo Lux MD in OV> 08/01/23 0103 DD/ 0755 TD/TT: Novelty Balloon Assembler And Packer: CHALO Assessment & Plan Assessment & Plan (1) Pulmonary nodules: Code(s): R91.8 - Other nonspecific abnormal finding of lung field Category: Medical (2) Hypogammaglobulinemia: Code(s): D80.1 - Nonfamilial hypogammaglobulinemia Category: Medical (3) Asthma: Code(s): J45.909 - Unspecified asthma, uncomplicated Category: Medical Qualifiers: Asthma complication type: uncomplicated Asthma persistence: persistent Asthma severity: moderate Qualified Code(s): J45.40 - Moderate persistent asthma, uncomplicated (4) Tobacco dependence: Comment: will retry Wellbutrin Code(s): F17.200 - Nicotine dependence, unspecified, uncomplicated Category: Medical (5) Atelectasis: Code(s): J98.11 - Atelectasis Category: Medical (6) Hoarseness of voice: Code(s): R49.0 - Dysphonia Category: Medical Plan Continue Symbicort as needed GENNY as needed Wellbutrin start nicotrol spray as needed LDCT program, now with nodules, RADS 4A->2 ENT referral F/U 6 months Orders: Referrals Ear/Nose/Throat Referral R49.0 - Dysphonia Medications: New nicotine (Nicotrol) 10 mg inhalation Q2-4H PRN 168 ea 0RF nicotine cravings 30 days Coding Level of Care Code Est Pt Level 4 (53428) Diagnoses Pulmonary nodules R91.8 Hypogammaglobulinemia D80.1 Moderate persistent asthma without complication J45.40 Asthma complication type: uncomplicated Asthma persistence: persistent Asthma severity: moderate Tobacco dependence F17.200 Atelectasis J98.11 Hoarseness of voice R49.0 Time Spent (min) 17
[2024-01-13 15:45] VITALS: PULSE 60; O2SAT 99; BMI 22.4
== END 2024-01-13 16:07 | disposition home or self-care (01) ==
PROVIDERS: PCP Family Medicine; Visit Provider Hospitalist
DX: R91.8 Other nonspecific abnormal finding of lung field (principal); D80.1 Nonfamilial hypogammaglobulinemia; J45.40 Moderate persistent asthma, uncomplicated; F17.200 Nicotine dependence, unspecified, uncomplicated; J98.11 Atelectasis; R49.0 Dysphonia
CPT/HCPCS: 99214

== ENCOUNTER → 2024-01-13 15:41 | Outpatient (BNVA) | payer BC, SELFPAY | PROVIDERS: PCP Family Medicine; Visit Provider Hospitalist | DX: D80.1 Nonfamilial hypogammaglobulinemia (principal) ==

== ENCOUNTER 2024-08-04 16:25 | Outpatient (REF) | payer BC, SELFPAY ==
--- NOTE | ~2024-08-04 | CT_ITS ---
CLINICAL HISTORY: F17.210 - Nicotine dependence, cigarettes, uncomplicated CT lung cancer screening (LDCT) Comparison: 07/29/2023 Technique: Axial CT images of the chest using low-dose technique. Referring provider counseled the patient on shared decision-making for LDCT screening. Additional counseling was provided on smoking cessation. Effective radiation dose total: DLP 36 mGycm, CTDIvol 1.2 mGy. Findings: Only 2 nodules are noted and no new nodules are seen. Nodule of the right medial lung base seen on image 112 of series number 4 measures up to 9.3 mm and is unchanged when measured in the same fashion on the prior exam. 4.1 mm nodule at the left lung apex seen on image number 21 of series number 4 is also unchanged. Coronary artery calcifications: None Small unchanged hepatic cyst. Other: None Impression: LungRADS 2 - Benign Appearance: Continue annual screening with low dose Chest CT in 12 months. ##L2# Category 1: Normal; continue annual screening Category 2: Benign appearance or behavior, continue annual screening Category 3: Probably benign, [address] recommended Category 4A: Suspicious, [address] recommended; may consider PET/CT Category 4B: Suspicious, Additional diagnostics and/or tissue sampling recommended Category 4X: Suspicious, Additional diagnostics and/or tissue sampling recommended Category 0: Recalls (incomplete screen due to Incomplete coverage, Noise, Respiratory motion, Expiration, Obscured by acute abnormality) This document has been electronically signed by: Vishnu Keane MD on 08/06/2024 08:33:40
--- OUTSIDE RECORDS SUMMARY | 2024-08-04 18:36 | XMS_ITS | Patient Health Record ---
Author Organization [facility] Address [address] [place] [address] Care Team Providers Care Senior Gl Accountant Name Role Phone Melia Brar Unavailable [phone] Reason For Referral No Information Medications Medication SIG (Take, Route, Fr equency, Duration) Notes Start Date End Date Status ZyrTEC 10MG 1 ORAL daily for -3 [facility] 09/14/2012 Active Vitamin D3 1000 IU ORAL daily for -3 [facility] 09/14/2012 Active Vitamin C 500MG 1 ORAL twice daily for -3 [facility] 09/15/19 13 Active Multivitamins 1 ORAL daily for -3 [facility] 09/14/2012 Active Calcium 1 ORAL daily for -3 [facility] 09/14/2012 Active Problems Problem Type SNOMED Code ICD Code Onset Dates Problem Status W/U Status Risk Notes Problem Female genital organ symptoms (907463331) Other specified symptom associated with female genital organs (625.8) Active confirmed Major Problem 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
--- OUTSIDE RECORDS SUMMARY | 2024-08-04 18:36 | XMS_ITS | Patient Health Record ---
Author Organization [facility] Address [address] [place] [address] Care Team Providers Care Van Loader Name Role Phone Jeffrey Bowen Primary Care Provider Angel De Paz Jr Unavailable [phone] Allergies Allergen (clinical drug ingredient) Drug/Non Drug Allergy documented on EMR Reaction Allergy Type Onset Date Status amoxicillin Amoxicillin Unknown Drug Allergy Act anjali Latex Latex (uncoded) Unknown Allergy Acti ve Reason For Referral No Information Medications Medication SIG (Take, Route, Frequency, Duration) Notes Start Date End Date Status Lomotil 2.5-0.025 MG 1 tablet as needed Orally Four times a day for 30 days 09/13/2020 Active immodium Active NexIUM 10 MG Orally Active Gaviscon Active Readi-Cat 2 2.1 % as directed Orally 09/13/2020 Active Vitamin D3 Active Sudafed Active Sia 10 mg Active Multivitamin Active Nicotrol PRN Active Tylenol 8 Hour Arthritis Pain 650 MG Orally Daily Active diazePAM 10 MG Rectal PRN Activ e Immunizations Vaccine Route Administration Date Status Comme nts Influenza Unknown 03/08/2020 Administered Social History Tobacco Use: Social History Observation Description Date Details (start date - stop date) Current Smoker NA - NA Tobacco Use/Smoking Question Answer Notes Patient is a current smoker When did you start smoking? 14 years old How often do you smoke cigarettes? every day How many cigarettes a day do you smoke? 11-20 How soon after you wake up do you smoke your fir st cigarette? within 5 minutes Are you interested in quitting? Ready to quit Alcohol Screen Question Answer Notes Did you have a drink containing alcohol in the p ast year? No Points 0 Interpretation Negative Problems Problem Type SNOMED Code ICD Code Onset Dates Problem Status W/U Status Risk Notes Problem 775152240 Generalized abdominal pain (R10.84) Active confirmed Problem 81128396 Colitis (K52.9) Active confirmed Problem 43296025 Lymphocytic colitis (K52.832) Active confirmed Plan Of Treatment Future Test Test Name Order Date CT ABD & PELVIS WITH CONTRAST 09/13/2020 Insurance Providers Payer Name Payer Address Payer Phone Subscriber Number Group Number Insured Name Patient Relationship to Insured Coverage Start Date Coverage End Date [facility] [address] [place], [place] [id number] [phone] [id number] RHIANNON POWELL Self - patient is the insured Medical (General) History Medical History History ICD Code seasonal allergies asthma acid reflux Ortiz's esophagus Lymphocytic Colitis Low IGG Pulmonary Nodules Bronchitis Surgical History Surgery Date(Month/Year) hysterectomy -Total Lap section
--- OUTSIDE RECORDS SUMMARY | 2024-08-04 18:36 | XMS_ITS ---
Author Name [facility] Organization Unknown Care Team Organization Name Specialty Phone Email Start Date End [facility] 06/02/2021 06/02/2021
--- OUTSIDE RECORDS SUMMARY | 2024-08-04 18:36 | XMS_ITS | Continuity of Care Document ---
Author Organization [facility] Hasmukh lt Address [address] [place] [id number]- Care Team Providers Care Abrasive Grinder Name Role Phone Andrés PATE, Jeffrey Vazquez Primary Care Physician Encounter [facility] Date(s): 06/10/24 - 07/10/24 [facility] Adult [address] [place] [id number]- Encounter Type: Triage Allergies, Adverse Reactions, Alerts Substance Criticality Severity Reaction Reaction Severity Status amoxicillin rash Active Macrobid Active Latex Active Pollen head congestion Acti ve Immunizations Given and Recorded Vaccine Date Status Refusal Reason influenza virus vaccine, inactivated 02/18/23 James rded influenza virus vaccine, inactivated 03/19/21 Give n influenza virus vaccine, inactivated 02/25/20 Give n Influenza Virus Vaccine (oldterm) 04/05/22 Recorde d hepatitis B adult vaccine 09/21/21 Given hepatitis B adult vaccine 04/23/21 Given hepatitis B adult vaccine 03/23/21 Given Hepatitis A-Hepatitis B Vaccine 09/21/21 Given Measles/Mumps/Rubella Virus Vaccine 03/23/21 Given SARS-CoV-2 (COVID-19) mRNA-1273 vaccine 10/14/20 R ecorded SARS-CoV-2 (COVID-19) mRNA-1273 vaccine 07/23/20 R ecorded pneumococcal 23-valent vaccine 02/11/20 Given tetanus/diphtheria/pertussis, acel(Tdap) 1 05/26/13 Recorded tetanus/diphtheria/pertussis, acel(Tdap) 04/22/12 Recorded 1Location History: [facility] Medications Biotin By Mouth, Daily, 0 Refills, Maintenance, 02/29/20 8:28:00 AM EDT Start Date: 02/29/20 Status: Ordered Repeat number: 1 diazepam 10 mg oral tablet 1, tablet, By Mouth, Daily at bedtime, PRN, # 12 tablet, Refills 0, Tot. Refills 0, Maintenance, ASNEEDED FOR SPASM, 06/11/24 1:51:00 PM EST, Route to Pharmacy Electronically, [facility] #[id number], 172.5, cm, 08/27/23 16:11:00 EDT, Height, 63.5, kg, 04/01/23 7:23:00 EST, Dry Weight Start Date: 06/11/24 Status: Ordered Quantity: 12.0 Unit: tablet Repeat number: 1 Gas-X Extra Strength = 125 mg, By Mouth, 3 times a day after meals and bedtime, 0 Refills, Maintenance, 09/21/19 8:05:00 AM EDT Start Date: 09/21/19 Status: Ordered Repeat number: 1 Imodium A-D 1 tab, By Mouth, Every 4 hours, PRN, Refills 0, Maintenance, Diarrhea, 04/14/17 3:29:22 PM EST Start Date: 04/14/17 Status: Ordered Repeat number: 1 levalbuterol 45 mcg/inh inhalation aerosol 1 puffs, Inhalation, Every 4 hours, PRN for wheezing, # 15 Gm, 2 Refills, Maintenance, 06/10/24 12:26:00 PM EST, Aerosol, [facility] #[id number], Partial fill upon patient request if the prescription is for a schedule II opioid drug., 172.5, cm, 08/27/23 16:11:00 EDT, Height, 63.5, kg, 04/01/23 7:23:00 EST, Dry Weight Start Date: 06/10/24 Status: Ordered Quantity: 15.0 Unit: g Repeat number: 3 Multivitamin 0 Refills, Maintenance, 04/07/23 11:26:00 AM EST, Partial fill upon patient request if the prescription is for a schedule II opioid drug. Start Date: 04/07/23 Status: Ordered Repeat number: 1 Nexium 20 mg oral enteric coated capsule 1 capsule = 20 mg, By Mouth, Daily, # 30 capsule, 0 Refills, Maintenance, 11/15/20 9:07:00 AM EDT, EC Capsule, Partial fill upon patient request if the prescription is for a schedule II opioid drug. Start Date: 11/15/20 Status: Ordered Quantity: 30.0 Unit: capsule Repeat number: 1 nicotrol inhaler nicotrol inhaler, Refills 0, Maintenance, 01/28/20 7:37:00 AM EDT, Supply Start Date: 01/28/20 Status: Ordered Repeat number: 1 Pepto Bismol Maximum Strength = 525 mg, By Mouth, 4 times a day, 0 Refills, Maintenance, 02/29/20 8:30:00 AM EDT Start Date: 02/29/20 Status: Ordered Repeat number: 1 Sudafed 12-Hour 120 mg oral tablet, extended release 1 tablet = 120 mg, By Mouth, Every 12 hours, PRN as needed for cold symptoms, # 20 tablet, 0 Refills, Maintenance, 01/28/20 7:36:00 AM EDT, ER Tablet Start Date: 01/28/20 Status: Ordered Quantity: 20.0 Unit: tablet Repeat number: 1 Tubing and mouthpiece for use with nebulizer Tubing and mouthpiece for use with nebulizer, See Instructions, # 1 each, Refills 0, Tot. Refills 0, Maintenance, For use with albuterol via nebulizer, 09/09/19 9:19:00 AM EDT, Supply, 171.4, cm, 07/19/19 8:26:00 EST, Height Start Date: 09/09/19 Status: Ordered Quantity: 1.0 Unit: each Repeat number: 1 Tylenol 8 HR Arthritis Pain = 1,300 mg, By Mouth, Every 8 hours, PRN Pain , Moderate, 0 Refills, Maintenance, 04/14/17 3:31:27 PM EST Start Date: 04/14/17 Status: Ordered Repeat number: 1 Vitamin D3 oral tablet 1 tablet = 400 International_Units, By Mouth, Daily, # 30 tablet, 0 Refills, Maintenance, 11/19/17 3:24:03 PM EDT, Tablet Start Date: 11/19/17 Status: Ordered Quantity: 30.0 Unit: tablet Repeat number: 1 Problem List Condition Confirmation Course Effective Dates Status Health Status Informant Degenerative disc disease, cervical Confirmed Active Endometriosis Confirmed Active Headache Confirmed Active Hypogammaglobulinemia Confirmed Active Low back pain Confirmed Active Lymphocytic colitis Confirmed Active Polyarthralgia Confirmed Active Pulmonary nodules Confirmed Active Neck pain Confirmed Active Pelvic mass in female Confirmed Active Tobacco abuse Confirmed Active Social History Social History Type Response Smoking Status Current every day sm oker; Tobacco user in household: No; Type: Cigarettes; Tobacco use times per day: 1 ppd; Number of years: 30; entered on: 11/19/16 Sex Sex Representation Female (finding) Patient Care team information Care Team Personnel Name: Jeffrey Bowen MD Position: S Physician - Primary Care Member Role: PCP Address: [address] [place] [id number] Telecom: Care Team Related Persons Name: HEIDI MARQUEZ Name: MARIANELA BERGER Insurance Providers Guarantor name: RHIANNON MARQUEZ Health Plan Information #: 1 Payer: [employer] Member Number: NA Policy Number: NA Group Number: NA
--- OUTSIDE RECORDS SUMMARY | 2024-08-04 18:36 | XMS_ITS | Continuity of Care Document ---
Author Organization [facility] Hasmukh lt Address [address] [place] [phone]- Care Team Providers Care Owner Consulting Engineer Name Role Phone Andrés PATE, Jeffrey Vazquez Primary Care Physician Encounter [facility] Date(s): 06/10/24 - 07/10/24 [facility] Adult [address] [place] [phone]- Encounter Type: Triage Allergies, Adverse Reactions, Alerts [...] Recorded tetanus/diphtheria/pertussis, acel(Tdap) 04/22/12 Recorded 1Location History: [facility] Medications Biotin By Mouth, Daily, 0 Refills, Maintenance, 02/29/20 8:28:00 AM EDT Start Date: 02/29/20 Status: Ordered Repeat number: 1 diazepam 10 mg oral tablet 1, tablet, By Mouth, Daily at bedtime, PRN, # 12 tablet, Refills 0, Tot. Refills 0, Maintenance, ASNEEDED FOR SPASM, 06/11/24 1:51:00 PM EST, Route to Pharmacy Electronically, [facility] #[id number], 172.5, cm, 08/27/23 16:11:00 EDT, Height, 63.5, [...] Refills, Maintenance, 06/10/24 12:26:00 PM EST, Aerosol, [facility] #[id number], Partial fill upon patient request if the [...] Team Personnel Name: Jeffrey Bowen MD Position: [facility] Physician - Primary Care Member Role: PCP Address: [address] [place] [id number] Telecom: Care Team Related Persons Name: HEIDI MARQUEZ Name: MARIANELA BERGER Insurance Providers Guarantor name: RHIANNON MARQUEZ Health Plan Information #: 1 Payer: [employer] Member Number: NA Policy Number: NA Group Number: NA
--- OUTSIDE RECORDS SUMMARY | 2024-08-04 18:36 | XMS_ITS | Clinical Summary ---
Author Organization [facility] Address [address] [place] [address] Care Team Providers Care Couture Alterations Dressmaker Name Role Phone Falguni Schneider MD Primary Care Provider Unavailab Falguni Meyer MD Unavailable Unavailable Allergies Active Allergy Reactions Criticality Noted Date Comments Amoxicillin 12/09/2019 Medications Biotin 94690 MCG Tab 0 12/09/2019 Active acetaminophen (Tylenol) 325 MG tablet 0 12/09/2019 Active diazePAM (VALIUM) 5 MG tablet 0 12/09/2019 Active Loperamide-Layla thicone (Imodium Multi-Symptom Relief) 2-125 MG Tab 0 12/09/2019 Active Ascorbic Acid (Vitamin C) 500 MG Cap 0 12/09/2019 Active Pseudoephedrine HCl (Sudafed) 30 MG tablet 0 12/09/2019 Active Omeprazole (PriLOSEC) [address] capsule TAKE 1 CAPSULE DAILY EVERY MORNING BEFORE BREAKFAST. 30 2 12/09/2019 Active famotidine (PEPCID) 20 MG tablet TAKE 1 TABLET AT BEDTIME. 30 3 12/09/2019 Active Active Problems Problem Noted Date Diagnosed Date Sinus drainage 12/10/2019 Overview (06/29/2023): Impression - [id number]: - Head and neck exam within normal limits. Flexible nasolaryngoscopy notable for laryngopharyngeal reflux and otherwise unremarkable. No masses/lesions or signs of infeciton. Suspect her PND and ear pressure are related to untreated LPR/GERD.; - Reviewed prior CT sinus which showed incidental findings of retention cysts. Laryngopharyngeal reflux 12/09/2019 Overview (06/29/2023): Impression - [id number]: - Moderate signs of LPR on exam. Moira and Melina had an extensive discussion regarding the potential side effects of short and senior care PPI use. Also discussed the risks of untreated Ortiz's esophagus.; - Given her persistent ENT symptoms and presence of Ortiz's I have recommended proceeding with medical management of her reflux. I also counseled her on reflux lifestyle modifications and recommended the book Dropping Acid. ; - Cliff also plans to follow-up with GI. Impression - [id number]: - Moderate signs of LPR on exam. Moira and I had an extensive discussion regarding the potential side effects of short and senior care PPI use. Also discussed the risks of untreated Ortiz's esophagus.; - Given her persistent ENT symptoms and presence of Ortiz's I have recommended proceeding with medical management of her reflux. I also counseled her on reflux lifestyle modifications and recommended the book Dropping Acid. ; - Cliff also plans to follow-up with GI.; - Follow-up in 6-8 weeks, sooner as needed. Family History Medical History Relation Name Comments Allergies (med/food/envrnmt) Other Allergies : Other Asthma Other asthma : Other Cancer (?Type) Other malignant salvatore plasm : Other Hypertension Other hypertension : Other Relation Name Status Comments Other Social History Tobacco Use Types Packs/Day Years Used Date Smoking Tobacco: Never Assessed Comments:Smoking Status:Toba financial accountant use Comments Unknown Sex and Gender Information Value Date Recorded Sex Assigned at Not on file Legal Sex Female 2:00 PM EDT Gender Identity Not on file Sexual Orientation Not on file Plan of Treatment Health Maintenance Due Date Last Done Comments Hepatitis C Screening 1970 Pap Smear 1986 DTaP/Tdap/Td (1 - Tdap) 1988 Hep B (1 of 3 - 19+ 3-dose series) 1989 Mammogram/Breast Imaging 2010 Colon Cancer Screening 2015 Pneumococcal 50+ years (1 of 1 - PCV) 2020 Zoster (Shingrix) (1 of 2) 2020 COVID-19 Vaccine ( - 2023-2 5 season) 2024 Influenza (#1) 2024 HPV Vaccine Aged Out No longer eligi ble based on patient's age to complete this topic Hep A Aged Out No longer eligi ble based on patient's age to complete this topic Hib Aged Out No longer eligi ble based on patient's age to complete this topic Meningococcal ACWY Aged Out No longer eligible based on patient's age to complete this topic Care Teams Couture Alterations Dressmaker Relationship Specialty Start Date End Date Falguni Schneider MD PCP - General 12/30/22 Falguni Schneider MD PCP - Backup PCP Internal Medicine 06/26/23
== END 2024-08-04 16:26 | disposition home or self-care (01) ==
LOC: HO.CT 16:25
PROVIDERS: PCP Family Medicine; Visit Provider Physician Assistant Medical
DX: Z12.2 Encounter for screening for malignant neoplasm of respiratory organs (principal); F17.210 Nicotine dependence, cigarettes, uncomplicated
CPT/HCPCS: 71271

== ENCOUNTER → 2024-08-04 16:27 | Outpatient (BNV) | payer BC, SELFPAY | PROVIDERS: PCP Family Medicine; Visit Provider Radiology Diagnostic Radiology | DX: F17.210 Nicotine dependence, cigarettes, uncomplicated (principal) | CPT/HCPCS: 71271 ==